=== PATIENT | male | born 1950 | race African-American/Black ===

== ENCOUNTER → 2018-11-03 11:25 | Outpatient (CLI) | payer MEDICARE, SELFPAY ==
--- NOTE | 2018-11-03 | DI.MRI.S_ITS ---
PROCEDURE: MR KNEE RT WO CON INDICATIONS: Unilateral primary osteoarthritis, right knee TECHNIQUE: Noncontrast sagittal PD fast spin echo and T2 fast spin echo with fat saturation, sagittal 3-D FLASH with fat saturation; coronal T1 spin echo and PD fast spin echo with fat saturation, and axial PD fast spin echo with fat saturation through the knee. COMPARISON: None. FINDINGS: Image quality: Excellent. Menisci: Lateral meniscus appears intact. Medial meniscal tear involving the posterior horn with truncation of the free margin (image 21 series 8.) Cruciate ligaments: Anterior cruciate ligament appears intact however is thickened and there is striated appearance with intrinsic T2 hyperintensity. The posterior cruciate ligament appears grossly intact. Medial structures: Medial collateral ligament intact. There is thickening of the distal insertion of the semimembranosus tendon. Pes anserinus tendons grossly unremarkable. Lateral structures: The lateral collateral ligament, long and short heads of the biceps femoris tendon appear intact. The popliteus tendon appears normal; the popliteofibular ligament appears intact. The posterosuperior and anteroinferior popliteomeniscal fascicles appear intact. The arcuate and fabellofibular ligaments appear intact, on either side of the lateral inferior geniculate artery. Iliotibial band appears normal. Anterior structures: Mild distal quadriceps tendinopathy. There is also mild proximal and distal patellar tendinopathy. Minimal prepatellar superficial edema/fluid. There is trace deep infrapatellar bursal fluid. Bones and cartilage: No focal marrow contusion or discrete low signal fracture line. Within the medial compartment, near full thickness loss of the central femoral and tibial articular cartilage image 22 series 11. Subchondral marrow cystic changes and edema. Within the lateral compartment, intrasubstance signal change involving the central tibial cartilage. There is diffuse partial thickness loss of the femoral cartilage. Within the patellofemoral compartment, mild intrasubstance signal change along the lateral femoral trochlear cartilage. There is diffuse surface fraying of the patellar cartilage. Joint space: Patel's cyst is seen measuring approximately 3 cm in the cephalocaudad dimension. Trace joint effusion. IMPRESSION: Medial meniscal tear involving the posterior horn. Mucoid degeneration involving the anterior cruciate ligament, versus sequela from age-indeterminate low-grade partial rupture. Distal semimembranosus insertional tendinopathy. Tricompartmental joint degeneration as above. Small Patel's cyst. Distal quadriceps and diffuse patellar tendinopathy. Dictated by: Milton Escoto M.D. on 11/03/2018 at 12:52 Approved by: Milton Escoto M.D. on 11/03/2018 at 13:02
== END ==
PROVIDERS: PCP Family Medicine; Visit Provider Orthopaedic Surgery
DX: M17.11 Unilateral primary osteoarthritis, right knee (principal); S83.241A Other tear of medial meniscus, current injury, right knee, initial encounter; M71.21 Synovial cyst of popliteal space [Baker], right knee; M67.961 Unspecified disorder of synovium and tendon, right lower leg
CPT/HCPCS: 73721

== ENCOUNTER 2018-12-01 08:06 | Day surgery (SDC) | payer MEDICARE, MEDICAID, SELFPAY ==
[2018-11-17 10:03] VITALS: BMI 23.3
[2018-12-01] VITALS (18 sets, daily range): BP systolic 137–174; BP diastolic 77–112; PULSE 75–98; RESP 14–20; TEMP 36.2–37.4; O2SAT 96–100; BMI 23.3
--- NOTE | 2018-12-01 06:00 | DI.RAD.S_ITS ---
PROCEDURE: XR KNEE RT 1TO2V INDICATIONS: prosthesis placement TECHNIQUE: 2 view(s) of the knee acquired. COMPARISON: None. FINDINGS: Bones: Patient is status post knee joint arthroplasty. Hardware components are in expected positions. Visualized bony structures are intact. Soft tissues: Overlying postoperative changes are noted. IMPRESSION: Expected appearance of knee arthroplasty. Dictated by: Emilia Odonnell M.D. on 12/01/2018 at 11:58 Approved by: Emilia Odonnell M.D. on 12/01/2018 at 11:58
[2018-12-01] MEDS: ACETAMINOPHEN 325 MG TABLET 975 MG PO ×3 (08:53→22:44)
[2018-12-01] MEDS: CELECOXIB 200 MG CAPSULE PO (08:53)
[2018-12-01] MEDS: PREGABALIN 75 MG CAPSULE PO (08:53)
[2018-12-01] MEDS: fentaNYL 100 MCG/2 ML INJ 50 MCG IV ×3 (09:23→12:13)
[2018-12-01] MEDS: MIDAZOLAM 2 MG/2 ML VIAL IV (09:24)
[2018-12-01] MEDS: LACTATED RINGERS 1,000 ML 42 ML IV ×2 (09:25→10:58)
--- NOTE | 2018-12-01 09:28 | SUR.PREOP ---
Block start time [910] . Monitoring initiated and maintained throughout procedure. Oxygen and medications given per anesthesiologist instructions. Patient remained stable throughout procedure, no adverse reactions noted. Darek Ko present throughout procedure. Block end time [927
--- NOTE | 2018-12-01 09:31 | PM.PREOP ---
Pre-operative Note Interval Note History & Physical reviewed/Exam performed by Physician: Yes Changes to H&P: No
--- NOTE | 2018-12-01 09:31 | PM.OP.1 ---
Operative Date/Time/Diagnoses Date of procedure: 12/01/18 Time of procedure: 11:22 Pre-op diagnosis: Right knee osteoarthritis Post-op diagnosis: same Procedure & Clinicians Procedure: Right total knee arthroplasty Same procedure as scheduled: Yes Indications: The patient presents today for total knee arthroplasty after failure of conservative treatment. The nature of the procedure including the risks and benefits, alternatives, postoperative course and expected outcome were discussed and all questions answered. Consent was obtained. Operative site confirmed and marked. Surgeon: Shashank Lee Money Counter: Barron Sahni Anesthesia Type: General, Spinal and Peripheral nerve block Operative Notes Findings: Severe osteoarthritis with mild varus alignment. Closure Type: primary Specimen(s): none sent Prosthetic devices, grafts, tissues, transplants, or devices: [employer] BCS: 5 femoral component, 5 tibial component, 9 mm BCS polyethylene tray and 35 x 9 mm round patella Applied: implant(s) Estimated Blood Loss (mL): 25 Blood products transfused: none Tourniquet time (min): 20 Procedure in detail: The patient was taken to the operative suite and placed under spinal and general anesthesia. The patient was given prophylactic antibiotics prior to surgery. The patient was also given tranexamic acid, 1 g, just prior to surgery for postoperative hemostasis. The lateral knee was prepped and the joint injected with 20 mL of 1% Lidocaine with epinephrine. The knee was then prepped and draped in usual sterile fashion. The leg was exsanguinated with an Esmarch dressing and the tourniquet raised to 250 torr. A 15 cm anterior incision was made. Next a medial trivector arthrotomy was made. The extensor mechanism was marked to ensure accurate repair. Initial exposing dissection was carried out medially and laterally. The knee was then extended and the patellar thickness was measured and a cut made removing approximately 9 mm of bone with a goal of restoring normal patellar thickness. The patella was then sized and drilled. Some excess lateral bone was excised and the patellofemoral ligament released. The tourniquet was then released. The knee was then flexed and the [employer] femoral guide was placed. The anterior pins were placed and the distal rotation holes drilled. The distal cutting guide was placed and the templated distal femoral cut was made. The templating cutting block was then placed and the anterior, posterior and chamfer cuts made. The [employer] tibial guide was placed and the alignment checked along the axis of the proximal tibial with a nel. The proximal tibial cut was then made with an oscillating saw. All meniscus and bony debris was then removed. Flexion extension gaps were checked. there was slight medial tightness especially in flexion. This was mostly corrected with percutaneous release of the MCL as long as routine osteophyte removal and exposure. The soft tissues were then injected with a combination of 20 mL of half percent Marcaine with epinephrine and 20 mL of Exparel. The trial components were then placed. The knee went into full extension and flexion beyond 120?. There was good medial- lateral balance throughout motion there was still a little increased lateral laxity compared to medial specially in flexion. However, I did not want to over release the MCL. Patellar tracking was excellent. The trial components were removed and size is confirmed for the final implants. The knee was then exsanguinated with an Esmarch dressing and the tourniquet reapplied for cementing. The knee was cleansed with Pulsavac irrigation and dried. The final components were cemented in with high viscosity vacuum mixed bone cement with antibiotics. The knee was held in extension and the patellar clamp until the cement had adequately cured. The knee was then irrigated with dilute Betadine solution. The extensor mechanism was closed with 5 interrupted #1 Vicryl sutures in 90 degrees of flexion. The joint was then injected with a combination of 1 g of tranexamic acid and 20 mL of quarter percent Marcaine with epinephrine. The subcutaneous tissue was closed with 2-0 Vicryl. The skin was closed with martínez and surgical adhesive. An Aquacel dressing and Osbaldo wrap were then applied. Complications: none Condition: stable Disposition: PACU Plan for aftercare: [facility] protocol for total knee arthroplasty.
[2018-12-01] MEDS: CEFAZOLIN 2 GM/100 ML FROZ.PIGGY IV ×2 (09:38→18:00)
--- NOTE | 2018-12-01 10:25 | SUR.OPER ---
Supine on padded OR bed. Pillow under head, arms secured on padded armboards <90 degree abduction. Safety belt across torso. Non-operative leg secured with tape over blanket over lower leg. Operative leg secured in DeMayo/Arvind positioner. Foam padded brace at thigh of operative leg.
[2018-12-01] MEDS: LIDOCAINE 1% W/EPI INJ 20 ML INJ (10:28)
[2018-12-01] MEDS: BUPIVACAINE 0.25% W/ EPI (PF) 20 ML, TRANEXAMIC ACID 1,000 MG, SODIUM CHLORIDE 0.9% 10 ML INJ (10:28)
[2018-12-01] MEDS: TRANEXAMIC ACID 1,000 MG VIAL 1000 MG INJ (10:29)
[2018-12-01] MEDS: BUPIVACAINE 0.25% W/ EPI (PF) 40 ML, BUPIVACAINE LIPOSOME 266 MG, SODIUM CHLORIDE 0.9% ... INJ (10:29)
[2018-12-01] MEDS: LABETALOL 20 MG/4 ML SYRINGE 5 MG IV ×2 (11:51→12:03)
--- NOTE | 2018-12-01 12:14 | SUR.PHASEI ---
after second dose of labetalol 5mg IV B/P responding better, 1213 B/P 140/90
[2018-12-01] MEDS: LACTATED RINGERS 1,000 ML 125 ML IV ×2 (13:02→20:53)
--- NOTE | 2018-12-01 13:19 | PC.NURSE ---
Patient arrived from PACU. Dressing with LUISA wrap in place to right knee. +CMS VSS. Denies pain at this time. Significant other at bedside. Oriented to room and call light. Call light and urinal placed within reach. bed alarm activated for safety.
[2018-12-01] MEDS: ALBUTEROL/IPRATROPIUM MDI 1 PUFF INH ×2 (15:02→21:38)
--- NOTE | 2018-12-01 15:20 | PT.IIE ---
Current Diagnoses Bilateral primary osteoarthritis of knee (12/01/18) Surgery Performed Operation Date: 12/01/18 09:30 Actual Procedures p Total Knee Arthroplasty(Right) - Shashank Lee MD Medical History (Last Updated 11/17/18 @ 10:05 by Ammy Gracia RN) Bilateral knee pain (Acute) COPD (chronic obstructive pulmonary disease) (Acute) Chronic hepatitis C (Acute) Cirrhosis (Acute) Physical Therapy Inpatient Evaluation/Re-Eval M1 PT/OT-IP Prior Functional Status Start: 12/01/18 16:27 Freq: NEEDED Status: Active Protocol: Document 12/01/18 15:20 AB (Rec: 12/01/18 16:41 AB [id number]) Medical Review Prior Functional Status Medical History Reviewed Yes Communication able to make needs known Mobility and Gait pt staed that he is independent with all mobilities and ambulation without AD but occasionally uses a SPC depending on knee pain Social History Household Members spouse Living Arrangements House Number of Floors (Floors) One Floor Number of Stairs To Enter/Railing? stated that he just has a small ledge to get into the house (~ 1 inch) Home Environment Standard Height Toilet Tub/Shower Home Equipment Front Wheel Walker Four Wheel Walker Straight Cane Crutches Bedside Commode Tub Transfer Bench Grab Bars Near Toilet Grab Bars In Shower Employment Status Retired M2 PT-IP Current Condition Start: 12/01/18 16:27 Freq: NEEDED Status: Active Protocol: Document 12/01/18 15:20 AB (Rec: 12/01/18 16:41 AB [id number]) Physical Therapy Current Condition Current Condition Evaluation Date 12/01/18 Treatment Diagnosis s/p R TKA; difficulty in walking Onset Date 12/01/18 Weight Bearing Status Weight Bearing Status Weight Bear as Tolerated M3 PT-IP Subjective Start: 12/01/18 16:27 Freq: NEEDED Status: Active Protocol: Document 12/01/18 15:20 AB (Rec: 12/01/18 16:41 AB [id number]) Subjective Physical Therapy Visit Type Type Initial Evaluation Visit Start Time 15:20 Visit Stop Time 16:15 Total Visit Minutes 55 Number of TOBACCO CHECKOUT CLERK Visits 0 Physical Therapy Visit Comments Patient Comments pt agreeable to do PT Therapy Pain Assessment Pain When Pain Assessed At Rest Pain Present Pain Present Pain Reported Location Right Knee Intensity 5 Scale Used Numeric (1 - 10) Pain Management Techniques Apply Cold Re-positioning Timing of Activity with Medications M4 PT-IP Mobility and Gait Start: 12/01/18 16:27 Freq: NEEDED Status: Active Protocol: Document 12/01/18 15:20 AB (Rec: 12/01/18 16:41 AB [id number]) PT-Bed Mobility Assessment Supine to Sit Supine to Sit Standby Assistance Scooting Scooting to Edge of Bed Standby Assistance PT-Transfer Assessment Sit to and From Stand Sit to and from Stand Contact Guard Assistance Equipment Transfer Assistive Device Gait Belt Front Wheeled Walker Orthotic/Prosthetic Devices or Brace: No Transfers Transfer Destination Toilet Transfer Technique pt ambulated using FWW Transfer Ability Level of Assist Contact Guard Assistance 1 Person Assistance Use of Upper Extremities Comments Mobility Comments pt complete sit to stand from EOB CGA and cues. pt ambulated ~ 20 ft to the toilet using FWW CGA with cues for techniques. pt is very guarded and requires increase time to complete task. pt was able to maintain standing using FWW for support CGA while using the toilet. pt ambulated towards the sink using FWW CGA ~ 12 ft and was able to complete handwashing using FWW for support requiring CGA for safety. pt agreed to sit up on the chair and ambulated ~ 8 ft using FWW CGA. positioned pt on the chair. ice pack provided. call light and table placed wthin reach. Gait Assessment Gait Gait Assistance Required: Contact Guard Assist Distance (Feet) 20 Able to Maintain Weight Bearing Status Yes During Gait Assistive Devices Assistive Device Gait Belt Front Wheeled Walker Orthotic/Prosthetic Devices or Brace: No Gait Deviations General Gait Pattern Antalgic Decreased Stride Length Decreased Feet Clearance Factors Limiting Gait Function Factors Limiting Gait Function Decreased Activity Tolerance Decreased Strength Limited Range of Motion Pain Poor Balance Poor Safety Awareness PT-Balance Assessment Sitting Balance and Reactions Static Sitting Balance Ability Good Dynamic Sitting Balance Ability Good Standing Balance and Reactions Static Standing Balance Ability Fair Dynamic Standing Balance Ability Fair Device Used FWW M5 PT-IP Objective Assessments Start: 12/01/18 16:27 Freq: NEEDED Status: Active Protocol: Document 12/01/18 15:20 AB (Rec: 12/01/18 16:41 AB [id number]) Orientation Orientation/Cognition Level of Alertness Alert Orientation Name Age Birthday Month Date Year Day of Week Place Situation Language Function Ability No Deficits Noted Safety Awareness Understands Safety Issues Gross Range of Motion Lower Extremity ROM Assessment Right Impaired Impairments R knee flexion: ~ 70 deg Strength Lower Extremity Strength Assessment Right Impaired Hip 4-/5 Knee 3+/5 Coordination Assessment Gross Coordination Gross Coordination Impaired Sensation Assessment Sensation Gross Sensation WNL Muscle Tone Muscle Tone WNL Yes M6 PT-IP Treatment Start: 12/01/18 16:27 Freq: NEEDED Status: Active Protocol: Document 12/01/18 15:20 AB (Rec: 12/01/18 16:41 AB [id number]) Physical Therapy Treatment Exercises Exercises Ankle Pumps Quad Sets Heel Slides Other Treatments Other Treatment Performed educated on how to complete turning without twisting on R knee M7 PT-IP Assessment and Plan Start: 12/01/18 16:27 Freq: NEEDED Status: Active Protocol: Document 12/01/18 15:20 AB (Rec: 12/01/18 16:41 AB [id number]) PT Summary Assessment and Plan Potential Rehabilitation Potential Good Status of Condition at Evaluation Stable Summary Impairments Pain ROM Strength Balance Coordination Cognition Bed Mobility Transfers Gait Activity Tolerance Assessment Summary pt requiring CGA with mobility and plans to go home with family to assist him. will continue to assess pt's mobility but will probably improve during hospital stay and may go home when medically stable. Goals Bed Mobility Goal Independent Transfer Goal Independent Front Wheeled Walker Gait Goal Independent Front Wheel Walker Gait Distance 250 Days to Meet Goals 3 Frequency of Treatment Frequency Of Treatment Twice a Day Treatment Plan Physical Therapy Treatment Plan Bed Mobility Training Transfer Training Gait Training Therapeutic Exercise Balance Retraining Post Op Education Discharge Planning Hot or Cold Pack Neuromuscular Re-ed Coordination Retraining Manual Therapy Other Recommendations and Next Treatment ambulation Focus Recommendations To Nursing Amount of Assist Needed Standby Assistance Discharge Recommendations PT Discharge Recommendations Home with Assistance Outpatient PT
[2018-12-01] MEDS: GABAPENTIN 300 MG CAPSULE PO (16:23)
[2018-12-01] MEDS: ALPRAZolam 0.25 MG TABLET PO (16:23)
[2018-12-01] MEDS: HYDROCODONE/ACET 5/325 TABLET 2 TAB PO ×2 (16:27→22:48)
[2018-12-01] MEDS: BUSPIRONE 5 MG TABLET 10 MG PO (22:45)
[2018-12-01] MEDS: GABAPENTIN 400 MG CAPSULE PO (22:45)
[2018-12-01] MEDS: buPROPion SR 150 MG TAB PO (22:46)
[2018-12-01] MEDS: ASPIRIN EC 81 MG TABLET PO (22:46)
--- NOTE | 2018-12-02 01:55 | PC.NURSE ---
Recreation Aide Note: 0020: Awake, assisted to reposition. Rt leg elevated on pillow. Dressing to rt knee cdi, and nani wrap intact over dressing. IV in place in lt hand, with LR infusing at 125cc/hr. Pt denies pain at this time.
[2018-12-02] MEDS: CEFAZOLIN 2 GM/100 ML FROZ.PIGGY IV (02:21)
[2018-12-02] MEDS: HYDROCODONE/ACET 5/325 TABLET 2 TAB PO (04:48)
[2018-12-02] MEDS: LACTATED RINGERS 1,000 ML 125 ML IV (04:50)
[2018-12-02 04:59] VITALS: BP 148/94; PULSE 95; RESP 18; TEMP 36.1; O2SAT 100
[2018-12-02] MEDS: PANTOPRAZOLE 20 MG TABLET PO (06:43)
[2018-12-02 07:26] LABS: Hematocrit 39.7 % (41-53)
[2018-12-02] MEDS: ALBUTEROL/IPRATROPIUM MDI 1 PUFF INH (07:40)
[2018-12-02 08:15] VITALS: PULSE 91; RESP 16; O2SAT 98
[2018-12-02 08:48] VITALS: BP 138/74; PULSE 84; RESP 16; TEMP 37.7; O2SAT 99
[2018-12-02] MEDS: ACETAMINOPHEN 325 MG TABLET 975 MG PO (09:21)
[2018-12-02] MEDS: ASPIRIN EC 81 MG TABLET PO (09:21)
--- NOTE | 2018-12-02 09:25 | PT.IPTN ---
Current Diagnoses Bilateral primary osteoarthritis of knee (12/01/18) Surgery Performed Operation Date: 12/01/18 09:30 Actual Procedures p Total Knee Arthroplasty(Right) - Shashank Lee MD Physical Therapy Treatment Note M2 PT-IP Current Condition Start: 12/01/18 16:27 Freq: NEEDED Status: Active Protocol: Document 12/01/18 15:20 AB (Rec: 12/01/18 16:41 AB [id number]) Physical Therapy Current Condition Current Condition Evaluation Date 12/01/18 Treatment Diagnosis s/p R TKA; difficulty in walking Onset Date 12/01/18 Weight Bearing Status Weight Bearing Status Weight Bear as Tolerated M3 PT-IP Subjective Start: 12/01/18 16:27 Freq: NEEDED Status: Active Protocol: Document 12/02/18 09:25 AB (Rec: 12/02/18 11:31 AB [id number]) Subjective Physical Therapy Visit Type Type Treatment Note Visit Start Time 09:25 Visit Stop Time 09:50 Total Visit Minutes 25 Number of OUTSIDE ENERGY SALES REPRESENTATIVES Visits 0 Physical Therapy Visit Comments Patient Comments pt agreeable to do PT Therapy Pain Assessment Pain When Pain Assessed At Rest Pain Present Pain Present Pain Reported Location Right Knee Intensity 4 Scale Used Numeric (1 - 10) Pain Management Techniques Apply Cold Re-positioning Timing of Activity with Medications M4 PT-IP Mobility and Gait Start: 12/01/18 16:27 Freq: NEEDED Status: Active Protocol: Document 12/02/18 09:25 AB (Rec: 12/02/18 11:37 AB [id number]) Gait Assessment Gait Gait Assistance Required: Standby Assistance Distance (Feet) 200 Able to Maintain Weight Bearing Status Yes During Gait Assistive Devices Assistive Device Gait Belt Front Wheeled Walker Orthotic/Prosthetic Devices or Brace: No Gait Deviations General Gait Pattern Antalgic Decreased Stride Length Decreased Feet Clearance Factors Limiting Gait Function Factors Limiting Gait Function Decreased Activity Tolerance Decreased Strength Limited Range of Motion Pain Poor Balance Poor Safety Awareness M5 PT-IP Objective Assessments Start: 12/01/18 16:27 Freq: NEEDED Status: Active Protocol: Document 12/01/18 15:20 AB (Rec: 12/01/18 16:41 AB [id number]) Orientation Orientation/Cognition Level of Alertness Alert Orientation Name Age Birthday Month Date Year Day of Week Place Situation Language Function Ability No Deficits Noted Safety Awareness Understands Safety Issues Gross Range of Motion Lower Extremity ROM Assessment Right Impaired Impairments R knee flexion: ~ 70 deg Strength Lower Extremity Strength Assessment Right Impaired Hip 4-/5 Knee 3+/5 Coordination Assessment Gross Coordination Gross Coordination Impaired Sensation Assessment Sensation Gross Sensation WNL Muscle Tone Muscle Tone WNL Yes M6 PT-IP Treatment Start: 12/01/18 16:27 Freq: NEEDED Status: Active Protocol: Document 12/02/18 09:25 AB (Rec: 12/02/18 11:37 AB [id number]) Physical Therapy Treatment Education Education Provided Safety M7 PT-IP Assessment and Plan Start: 12/01/18 16:27 Freq: NEEDED Status: Active Protocol: Document 12/02/18 09:25 AB (Rec: 12/02/18 11:37 AB [id number]) PT Summary Assessment and Plan Potential Rehabilitation Potential Good Summary Impairments Pain ROM Strength Balance Coordination Sensation Tone Cognition Bed Mobility Transfers Gait Activity Tolerance Progress Towards Goals Progressing Toward Goals Assessment Summary pt doing well with mobility and plans to go home with spouse to assist him. pt may go home when medically stable Goals Bed Mobility Goal Independent Transfer Goal Independent Front Wheeled Walker Gait Goal Independent Front Wheel Walker Gait Distance 250 Days to Meet Goals 3 Frequency of Treatment Frequency Of Treatment Twice a Day Treatment Plan Physical Therapy Treatment Plan Bed Mobility Training Transfer Training Gait Training Therapeutic Exercise Balance Retraining Post Op Education Discharge Planning Hot or Cold Pack Neuromuscular Re-ed Coordination Retraining Manual Therapy Other Recommendations and Next Treatment ambulation Focus Recommendations To Nursing Amount of Assist Needed Standby Assistance Discharge Recommendations PT Discharge Recommendations Home with Assistance Outpatient PT
[2018-12-02] MEDS: BUSPIRONE 5 MG TABLET 10 MG PO (10:02)
--- NOTE | 2018-12-02 10:02 | P.DS_ITS ---
History of Present Illness Date Patient Seen: 12/02/18 Chief complaint: [id number] Narrative: Patient seen bedside s/p R. TKA POD #1. Patient is doing well, he is ambulating with physical therapy, and his pain is well controlled. He denies chest pain shortness of breath and calf pain. He does feel like the [place]bal[place] wrap is digging into his knee so this was removed. He would like to go home today. He really has is pain medication as he is under a pain management contract with his PCP. Discharge Providers Date of admission: 12/01/18 08:06 Discharge Date: 12/02/18 Primary care physician: Eric Sanchez MD Consults: 12/01/18 12:39 Consult to Discharge Planning Routine Comment: Consult to Physical Therapy Evaluate & Treat Comment: Physician Instructions: postop TKA protocol Consult to Respiratory Therapy Evaluate & Treat Comment: Physician Instructions: Evaluate and treat Discharge provider: Leona Boswell PA-C Summary Discharge Diagnosis: Right knee osteoarthritis Hospital Course: Patient was admitted to the hospital status post right total knee arthroplasty by Dr. Lee on 03/15/2019. Patient tolerated the procedure well with no major complications. They were transferred to the acute care floor where they were placed on the standard joint replacement pathway and protocol. They were seen by physical therapy who recommended that they be discharged home. They were stable and ready for discharge on 12/02/2018. Status at Discharge Cognitive/behavioral status at discharge: oriented Functional status at discharge: uses cane/walker Overall status at discharge: patient is back to baseline Time Spent with Patient Less than 30 minutes Exam Vital Signs (past 8 hours): - 12/02/18 04:59 12/02/18 08:15 12/02/18 08:48 Temperature 97.0 F L 99.8 F H Pulse Rate 95 H 91 H 84 Respiratory Rate 18 16 16 Blood Pressure 148/94 H 138/74 Pulse Oximetry 100 98 99 Fraction of Inspired Oxygen 21 Oxygen Delivery Method Room Air Oxygen Flow Rate 0 Narrative Exam Narrative: Well-developed, well-nourished, no acute distress. Alert and oriented to person, place, and time. Dressing on operative knee is clean, dry, and intact with no signs of drainage. Minimal erythema and generalized swelling around the surgical site. Neurovascularly intact in operative extremity with a soft and compressible calf. Range of motion of the operative ankle intact. Objective Labs Result Diagrams: 12/02/18 06:55 Labs: Laboratory Results - last 24 hr 12/02/18 06:55 Hgb 13.0 L Hct 39.7 L Discharge Plan Discharge Plan Patient Disposition: Home Discharge comment: Patient has a pain contract with PCP and has [place] 7.5mg- 325mg at home. Discharge Med Rec/Prescriptions Prescriptions: New aspirin 81 mg Tablet,Delayed Release (Dr/Ec) 81 mg PO BID Qty: 0 RF: 0 Continued oxybutynin chloride 10 mg Tablet Extended Release 24hr 10 mg PO DAILY RF: 0 ranitidine HCl 150 mg Tablet 150 mg PO BEDTIME RF: 0 albuterol sulfate [Ventolin HFA] 90 mcg/actuation Hfa Aerosol Inhaler 2 puff INHALATION Q4-6H PRN (Reason: copd) RF: 0 hydroxyzine pamoate [Vistaril] 25 mg Capsule 25 mg PO Q6-8H PRN (Reason: nausea/spasms) RF: 0 meloxicam [Mobic] 15 mg Tablet 15 mg PO DAILY RF: 0 alprazolam 0.25 mg Tablet 0.25 mg PO TID RF: 0 buspirone 10 mg Tablet 10 mg PO BID RF: 0 gabapentin 300 mg Capsule 300 mg PO TID RF: 0 omeprazole 20 mg Capsule,Delayed Release(Dr/Ec) 20 mg PO DAILY RF: 0 benazepril 20 mg Tablet 20 mg PO DAILY RF: 0 dicyclomine 10 mg Capsule 300 mg PO TID RF: 0 bupropion HCl 150 mg Tablet Extended Release 24 Hr 150 mg PO DAILY RF: 0 Combivent Respimat 20-100 mcg/actuation Mist 1 puff INHALATION QID RF: 0 Follow up/Referrals: Eric Sanchez MD [Primary Care Provider] - Provider Discharge Instructions Diet: Diet as Tolerated Activity: Weight bearing as tolerated use walker until cleared by Physical therapy. Elevate operative leg as much as possible to help with swelling. Cold/Heat Therapy: Apply ice to affected area for 20 minutes at a time at least hourly while awake. Other treatments: Please refer to [place] path book for any questions or concerns. Continue with pain management regiment as per pain contract with PCP. Skin/Wound/Dressing Care Report to your healthcare provider any signs of infection, such as:: chills, fever, night sweats, increased pain, unusual drainage and unusual redness Dressing: Keep dressing clean, dry, and intact. May shower with it in place but no soaking. Visit Report/Discharge Packet Instructions: DI for Knee Replacement Stand Alone Forms: Surgery Discharge Discharge Data Primary Care Provider: Eric Sanchez Attending Provider: Shashank Lee Admit Date/Time: 12/01/18 08:06 Quality VTE Deep Vein Thrombosis/Pulmonary Embolism Present on Admission: No
[2018-12-02] MEDS: buPROPion SR 150 MG TAB PO (10:12)
[2018-12-02] MEDS: MELOXICAM 7.5 MG TABLET 15 MG PO (10:12)
[2018-12-02] MEDS: GABAPENTIN 400 MG CAPSULE PO (10:12)
[2018-12-02] MEDS: OXYBUTYNIN 5 MG ER TAB 10 MG PO (10:13)
[2018-12-02 11:30] VITALS: TEMP 37.9
--- NOTE | 2018-12-02 11:30 | PC.NURSE ---
Nurse notified of increase in temperature.
--- NOTE | 2018-12-02 12:10 | PC.NURSE ---
Pt ready for discharge home with Spouse. HL removed. Went over d/c instructions-discussed d/c meds, time of last dose, reviewed stroke education, showering, dressing, reviewed s/s of infection, and Pt to monitor his temp and report to Orthopedist if he has a temp that is continuous or greater than 101.5. Pt already has his home prescriptions. Pt denies further questions and is ready to be taken out to pov via w/c when spouse arrives.
--- NOTE | 2018-12-02 14:20 | CM.IDA ---
Initial DCP Assessment Note: Pt is a 68 yo male, resident of [place]. Pt POD#1 from rt hip surgery done by Dr Lee. PCP: Dr Sanchez Payer:Medicare/Medicaid Met w/pt this morning to introduce role and review DCP. Pt is eager to return home today and feels confident about his plan; home w/family to assist and outpt PT. PT has cleared pt for return home w/outpt PT. P: Home today w/family and outpt therapy. EVERARDO Resendiz
== END 2018-12-02 13:03 | disposition home or self-care (01) ==
LOC: AC 12-02 11:47 → OR 12-02 16:10
PROVIDERS: PCP Family Medicine; Visit Provider Orthopaedic Surgery
PROC: 0SRC0JZ Replacement of Right Knee Joint with Synthetic Substitute, Open Approach (ICD-10-PCS; CPT 27447; principal; 2018-12-01 09:30)
DX: M17.11 Unilateral primary osteoarthritis, right knee (principal); G89.18 Other acute postprocedural pain; J44.9 Chronic obstructive pulmonary disease, unspecified
CPT/HCPCS: 27447; 36415; 64447; 64450; 73560; 85014; 85018; 94640; 94760; 94762; 97116; 97161; 97530; C1776; C9290; J0690; J1100; J2250; J2405; J2704; J3010

== ENCOUNTER → 2021-10-01 13:02 | Outpatient (CLI) | payer MEDICARE, MEDICAID, SELFPAY ==
[2018-12-01 08:13] VITALS: BMI 23.3
== END ==
PROVIDERS: PCP Family Medicine; Referring Provider Nurse Practitioner Family; Visit Provider Family Medicine
DX: Z76.89 Persons encountering health services in other specified circumstances (principal); Z87.828 Personal history of other (healed) physical injury and trauma; Z72.0 Tobacco use
CPT/HCPCS: 99202; 99212